=== PATIENT | female | born 1945 | race African-American/Black ===

== ENCOUNTER → 2018-01-25 | Day surgery (SDC) | payer MEDICARE ==
[~2018-01-25] VITALS: Ht 165.1 cm; Wt 72.6 kg
[~2018-01-25] MED LIST: ATEN50TA PO; BACITRACIN 50,000 UNITS/VIAL ONE; BACITRACIN ZINC 15GM TUBE TOP ONE; BETAMETHASONE ACET/BETAMET 30 MG/5 ML VIAL IM ONE; BUPIVACAINE HCL/PF 0.25% (2.5MG/ML) 10ML ONE; CEFAZOLIN SODIUM 1000MG/VIAL ONE; DIPHENHYDRAMINE 50MG/ML VIAL IV NR; FENTANYL CITRATE/PF 50MCG/ML 2ML VIAL ONE; GLYCOPYRROLATE 0.2 MG/ML 2ML VIAL ONE; HYDR12.54 PO; LACTATED RINGERS 1,000 ML IV SCH; LIDOCAINE HCL/EPINEPHRINE 1%-EPI 1:100,000 30 ML VIAL INFIL ONE; LIDOCAINE HCL/PF 1% 10 MG/ML 5ML VIAL ONE; MEPERIDINE HCL/PF 25MG/ML CPJ IV PRN; MIDAZOLAM HCL 2 MG/2 ML VIAL ONE; MORPHINE SULFATE 2 MG/ML CPJ (NOT FOR IM USE) IV PRN; MORPHINE SULFATE 4 MG/ML CPJ (NOT FOR IM USE) IV PRN; NIFE30TA94 PO; NORMAL SALINE 0.9% 10 ML SYR ONE; OMEP20CA10 PO; ONDANSETRON HCL 4MG/2ML VIAL IV PRN; ONDANSETRON HCL 4MG/2ML VIAL ONE; PROPOFOL 200MG/20ML VIAL IV ONE; PSYL0.4C2 PO; ROPIVACAINE HCL 10MG/ML 20 ML VIAL EPI ONE; SODIUM CHLORIDE 0.9% 1,000 ML IV ONE; SUCCINYLCHOLINE CHLORIDE 200MG/10ML VIAL IV ONE
[2018-01-25 09:19] VITALS: BP 121/66
== END | disposition home or self-care (01) ==
LOC: OR 05:57
PROVIDERS: ATTEND Podiatrist Foot & Ankle Surgery
DX: M21.611 Bunion of right foot (principal); M20.41 Other hammer toe(s) (acquired), right foot; Z90.710 Acquired absence of both cervix and uterus; Z98.890 Other specified postprocedural states; Z98.42 Cataract extraction status, left eye; Z98.41 Cataract extraction status, right eye; Z79.899 Other long term (current) drug therapy; I10 Essential (primary) hypertension; K21.9 Gastro-esophageal reflux disease without esophagitis
CPT/HCPCS: 28022; 28285; 28296; 88304; 88311; A4216; J0330; J0690; J0702; J1200; J2250; J2270; J2405; J2795; J3010; J3490; J7120; J2704